=== PATIENT | female | born 1950 | race Caucasian/White ===

== ENCOUNTER 2017-05-25 14:20 | Inpatient (IN) | payer MEDICARE, BC ==
[~2017-05-25] VITALS: Ht 170.2 cm; Wt 62.3 kg
[2017-05-25] MEDS ORDERED: SODIUM CHLORIDE 0.9% 1,000 ML IVB ONE (15:05)
[2017-05-25] MEDS ORDERED: OLAN2.5T32 PO (15:32)
[2017-05-25] MEDS ORDERED: BUPR8SUB18 SL (15:32)
[2017-05-25 16:02] LABS: Basophils # (auto) 0 uL; Eosinophils # (auto) 0 uL; Mean Corpuscular Volume 92.4 fL (80.0-100.0); Monocytes # (auto) 0.1 uL; Platelet Count (auto) 188 10^3/uL (140-450)
[2017-05-25 16:04] LABS: Basophils % (auto) 0.2 % (0.0-2.0); Eosinophils % (auto) 0.1 % (0.0-7.0); Hematocrit 22.7 % (36.0-46.0); Hemoglobin 7.8 g/dL (12.2-16.2); Lymphocytes # (auto) 0.3 uL; Lymphocytes % (auto) 5.4 % (10.0-50.0); Mean Corpuscular Hemoglobin 31.8 pg (28.0-32.0); Mean Corpuscular Hgb Conc. 34.4 g/dL (32.0-36.0); Monocytes % (auto) 1.1 % (0.0-12.0); Neutrophils # (auto) 5.8 uL; Neutrophils % (auto) 93.2 % (37.0-80.0); Nucleated Red Blood Cells % 0.1 %; Red Blood Cells 2.45 10^6/uL (4.0-5.20); Red Cell Distribution Width 13.9 % (11.8-14.3); White Blood Cell 6.2 10^3/uL (4.4-10.8)
[2017-05-25 16:26] LABS: Alanine Aminotransferase 89 U/L (13-56); Albumin 2.2 g/dL (3.4-5.0); Alkaline Phosphatase 114 U/L (45-117); Anion Gap 9 (5-15); Aspartate Aminotransferase 84 U/L (15-37); BUN/Creatinine Ratio 18.3; Bilirubin, Total 0.4 mg/dL (0.2-1.0); Blood Urea Nitrogen 13 mg/dL (7-18); Calcium 6.7 mg/dL (8.5-10.1); Carbon Dioxide 21 mmol/L (21-32); Chloride 109 mmol/L (98-107); GFR African American 106 mL/min; GFR Non-African American 88 mL/min; Glucose 235 mg/dL (74-106); Magnesium 2.3 mg/dL (1.6-2.6); Potassium 3.5 mmol/L (3.5-5.1); Sodium 139 mmol/L (136-145); Total Protein 4.3 g/dL (6.4-8.2)
[2017-05-25] MEDS ORDERED: ONDANSETRON HCL 4 MG/2 ML VIAL IV PRN (17:00)
[2017-05-25] MEDS ORDERED: NITROGLYCERIN 0.4 MG SL TAB SL PRN (17:00)
[2017-05-25] MEDS ORDERED: MORPHINE SULFATE 4 MG/ML SYR/VIAL IV PRN (17:00)
[2017-05-25] MEDS ORDERED: PANTOPRAZOLE 40 MG/10 ML VIAL IV ONE (17:00)
[2017-05-25] MEDS: SODIUM CHLORIDE 0.9% 1,000 ML IV SCH (17:11)
[2017-05-25] MEDS: buPROPion HCL 75 MG TAB PO SCH (22:00)
[2017-05-25 22:30] VITALS: BP 113/58
[2017-05-26] VITALS (9 sets, daily range): BP systolic 101–122; BP diastolic 66–85
[2017-05-26] MEDS: SODIUM CHLORIDE 0.9% 1,000 ML IV SCH ×2 (06:20→19:40)
[2017-05-26 06:23] LABS: Basophils # (auto) 0 uL; Eosinophils # (auto) 0 uL; Hemoglobin 7.3 g/dL (12.2-16.2); Lymphocytes # (auto) 0.3 uL; Monocytes # (auto) 0.4 uL; Neutrophils % (auto) 91.1 % (37.0-80.0)
[2017-05-26 06:27] LABS: Basophils % (auto) 0.1 % (0.0-2.0); Hematocrit 21.1 % (36.0-46.0); Mean Corpuscular Hemoglobin 31.8 pg (28.0-32.0); Mean Corpuscular Hgb Conc. 34.8 g/dL (32.0-36.0); Mean Corpuscular Volume 91.4 fL (80.0-100.0); Monocytes % (auto) 4.8 % (0.0-12.0); Neutrophils # (auto) 7.8 uL; Nucleated Red Blood Cells % 0.1 %; Platelet Count (auto) 172 10^3/uL (140-450); Red Blood Cells 2.31 10^6/uL (4.0-5.20); Red Cell Distribution Width 13.7 % (11.8-14.3); White Blood Cell 8.6 10^3/uL (4.4-10.8)
[2017-05-26 06:51] LABS: BUN/Creatinine Ratio 13.6; Calcium 7.6 mg/dL (8.5-10.1); Potassium 4.3 mmol/L (3.5-5.1)
[2017-05-26 06:53] LABS: Urine Bacteria NONE SEEN /hpf (None Seen); Urine Blood Negative /uL (Negative); Urine Specific Gravity 1.006 (1.001-1.035); Urine WBC <1 /hpf (0 - 5)
[2017-05-26] MEDS ORDERED: PANTOPRAZOLE 40 MG/10 ML VIAL IV SCH (10:00)
[2017-05-26] MEDS ORDERED: OLANZapine 5 MG TAB PO SCH (10:00)
[2017-05-26] MEDS ORDERED: DEXTROSE (50%) 50ML SYRG IV PRN (11:15)
[2017-05-26] MEDS: buPROPion HCL 75 MG TAB PO SCH ×2 (11:31→22:03)
[2017-05-26] MEDS: InsuLIN REG 1unit/0.01ml Soln (100units/ml) SC SCH ×3 (11:38→21:08)
[2017-05-26] MEDS: ACCU-CHEK COMFORT CURVE STRIP VI SCH ×3 (11:38→21:02)
[2017-05-26] MEDS: PANTOPRAZOLE 40 MG/10 ML VIAL IV SCH (22:03)
[2017-05-27 05:00] VITALS: BP 125/84
[2017-05-27 06:35] LABS: Basophils # (auto) 0 uL; Basophils % (auto) 0.2 % (0.0-2.0); Eosinophils # (auto) 0 uL; Hematocrit 24.8 % (36.0-46.0); Hemoglobin 8.7 g/dL (12.2-16.2); Lymphocytes # (auto) 1.6 uL; Lymphocytes % (auto) 14.5 % (10.0-50.0); Mean Corpuscular Hemoglobin 31.6 pg (28.0-32.0); Mean Corpuscular Hgb Conc. 35.1 g/dL (32.0-36.0); Mean Corpuscular Volume 90.1 fL (80.0-100.0); Monocytes # (auto) 0.8 uL; Monocytes % (auto) 7.6 % (0.0-12.0); Neutrophils # (auto) 8.4 uL; Neutrophils % (auto) 77.7 % (37.0-80.0); Platelet Count (auto) 190 10^3/uL (140-450); Red Blood Cells 2.75 10^6/uL (4.0-5.20); Red Cell Distribution Width 14.5 % (11.8-14.3); White Blood Cell 10.7 10^3/uL (4.4-10.8)
[2017-05-27] MEDS: InsuLIN REG 1unit/0.01ml Soln (100units/ml) SC SCH (06:39)
[2017-05-27] MEDS: ACCU-CHEK COMFORT CURVE STRIP VI SCH (06:39)
[2017-05-27 08:00] VITALS: BP 122/83
[2017-05-27 08:31] LABS: INR 0.95 (0.9-1.15); Prothrombin Time 10.3 sec (9.37-12.3)
[2017-05-27] MEDS: SODIUM CHLORIDE 0.9% 1,000 ML IV SCH ×2 (09:00→21:33)
[2017-05-27 09:33] VITALS: BP 122/83
[2017-05-27] MEDS: PANTOPRAZOLE 40 MG/10 ML VIAL IV SCH ×2 (09:58→21:30)
[2017-05-27] MEDS: buPROPion HCL 75 MG TAB PO SCH ×2 (09:59→21:31)
[2017-05-27] MEDS ORDERED: LIDOCAINE VISCOUS 2% 15ML UD ONE (10:29)
[2017-05-27] MEDS ORDERED: NALOXONE HCL 0.4 MG/ML VIAL ONE (10:29)
[2017-05-27] MEDS ORDERED: FLUMAZENIL 0.1 MG/ML INJ 10ML MDV IV ONE (10:29)
[2017-05-27] MEDS ORDERED: diphenhdrAMINE HCL 50 MG/1 ML VL ONE (10:30)
[2017-05-27] MEDS: MIDAZOLAM HCL 5 MG/ML-1ML VIAL ONE ×2 (11:28→11:35)
[2017-05-27] MEDS: fentaNYL CITRATE 100 MCG/2 ML VL ONE ×2 (11:28→14:07)
[2017-05-27] MEDS ORDERED: EPINEPHrine HCL 1 MG/10 ML SYRG ONE (11:34)
[2017-05-27 17:02] VITALS: BP 117/77
[2017-05-27] MEDS: OLANZapine 5 MG TAB PO SCH (21:32)
[2017-05-27 22:00] VITALS: BP 111/68
[2017-05-28 05:20] VITALS: BP 117/72
[2017-05-28 06:50] LABS: Basophils # (auto) 0 uL; Eosinophils # (auto) 0 uL; Hemoglobin 8.3 g/dL (12.2-16.2); Lymphocytes # (auto) 1.3 uL; Monocytes # (auto) 0.2 uL; Neutrophils # (auto) 2.5 uL
[2017-05-28 06:52] LABS: Basophils % (auto) 0.6 % (0.0-2.0); Eosinophils % (auto) 0.5 % (0.0-7.0); Hematocrit 23.7 % (36.0-46.0); Mean Corpuscular Hemoglobin 31.7 pg (28.0-32.0); Mean Corpuscular Hgb Conc. 34.9 g/dL (32.0-36.0); Mean Corpuscular Volume 90.8 fL (80.0-100.0); Neutrophils % (auto) 62.9 % (37.0-80.0); Platelet Count (auto) 191 10^3/uL (140-450); Red Blood Cells 2.61 10^6/uL (4.0-5.20); Red Cell Distribution Width 14.1 % (11.8-14.3)
[2017-05-28 07:03] LABS: BUN/Creatinine Ratio 17.1; Calcium 8.1 mg/dL (8.5-10.1); Potassium 3.7 mmol/L (3.5-5.1)
[2017-05-28 07:29] VITALS: BP 104/70
[2017-05-28 08:00] VITALS: BP 124/78
[2017-05-28] MEDS: buPROPion HCL 75 MG TAB PO SCH ×2 (09:46→22:40)
[2017-05-28] MEDS: PANTOPRAZOLE 40 MG/10 ML VIAL IV SCH ×2 (09:46→22:40)
[2017-05-28 12:16] VITALS: BP 124/78
[2017-05-28 16:42] VITALS: BP 114/75
[2017-05-28 22:00] VITALS: BP 91/54
[2017-05-28] MEDS: OLANZapine 5 MG TAB PO SCH (22:40)
[2017-05-29 00:29] VITALS: BP 103/66
[2017-05-29 05:29] VITALS: BP 105/65
[2017-05-29 07:04] LABS: Basophils # (auto) 0 uL; Eosinophils # (auto) 0.2 uL; Hemoglobin 8.3 g/dL (12.2-16.2); Lymphocytes # (auto) 1.2 uL; Monocytes # (auto) 0.2 uL; Neutrophils # (auto) 1.4 uL; Red Cell Distribution Width 13.6 % (11.8-14.3)
[2017-05-29 07:06] LABS: Basophils % (auto) 1.2 % (0.0-2.0); Eosinophils % (auto) 5.2 % (0.0-7.0); Hematocrit 23.8 % (36.0-46.0); Lymphocytes % (auto) 41.4 % (10.0-50.0); Mean Corpuscular Hemoglobin 31.3 pg (28.0-32.0); Mean Corpuscular Hgb Conc. 34.9 g/dL (32.0-36.0); Mean Corpuscular Volume 89.9 fL (80.0-100.0); Monocytes % (auto) 5.7 % (0.0-12.0); Neutrophils % (auto) 46.5 % (37.0-80.0); Platelet Count (auto) 223 10^3/uL (140-450); Red Blood Cells 2.65 10^6/uL (4.0-5.20)
[2017-05-29 07:31] VITALS: BP 109/72
[2017-05-29 08:12] VITALS: BP 109/72
[2017-05-29] MEDS: buPROPion HCL 75 MG TAB PO SCH (09:19)
[2017-05-29] MEDS: PANTOPRAZOLE 40 MG/10 ML VIAL IV SCH (09:19)
[2017-05-29 11:06] VITALS: BP 109/72
== END 2017-05-29 12:40 | disposition home or self-care (01) | DRG 393 ==
LOC: ER 14:20 → EDBD 14:20 → TELE 14:21 → TELE-CENTR 20:30
PROVIDERS: ADMIT Internal Medicine; ATTEND Internal Medicine
PROC: 30233N1 Transfusion of Nonautologous Red Blood Cells into Peripheral Vein, Percutaneous Approach (ICD-10-PCS; 2017-05-26)
PROC: 0W3P8ZZ Control Bleeding in Gastrointestinal Tract, Via Natural or Artificial Opening Endoscopic (ICD-10-PCS; 2017-05-27)
PROC: 3E0G8GC Introduction of Other Therapeutic Substance into Upper GI, Via Natural or Artificial Opening Endoscopic (ICD-10-PCS; principal; 2017-05-27 11:25)
DX: S36.490A Other injury of duodenum, initial encounter (principal); K29.81 Duodenitis with bleeding; I95.9 Hypotension, unspecified; C25.9 Malignant neoplasm of pancreas, unspecified; K83.1 Obstruction of bile duct; K26.4 Chronic or unspecified duodenal ulcer with hemorrhage; D64.9 Anemia, unspecified; E78.5 Hyperlipidemia, unspecified; K29.61 Other gastritis with bleeding; F31.9 Bipolar disorder, unspecified; R55 Syncope and collapse; Z80.0 Family history of malignant neoplasm of digestive organs; Z80.49 Family history of malignant neoplasm of other genital organs; Z80.52 Family history of malignant neoplasm of bladder; Z80.7 Family history of other malignant neoplasms of lymphoid, hematopoietic and related tissues; Z80.8 Family history of malignant neoplasm of other organs or systems; X58.XXXA Exposure to other specified factors, initial encounter; Y93.9 Activity, unspecified; Y92.239 Unspecified place in hospital as the place of occurrence of the external cause
CPT/HCPCS: 36415; 36430; 43255; 71045; 80048; 80053; 81001; 82962; 83036; 83735; 84484; 85025; 85610; 85730; 86850; 86900; 86901; 86920; 87081; 93005; 93306; 94761; 96361; 96374; C9113; J1642; J1815; J2250

== ENCOUNTER 2017-07-01 20:33 | Emergency (ER) | payer MEDICARE, OTHER ==
[~2017-07-01] VITALS: Ht 170.2 cm; Wt 63.0 kg
[~2017-07-01 20:33] MED LIST: BUPR8SUB18 SL; OLAN2.5T32 PO
[2017-07-01 21:19] LABS: Urine Bacteria NONE SEEN /hpf (None Seen); Urine Blood Negative /uL (Negative); Urine WBC 1 /hpf (0 - 5)
[2017-07-01] MEDS ORDERED: metroNIDAZOLE 500MG/100ML 100 ML IV ONE (22:45)
[2017-07-01] MEDS ORDERED: cefTRIAXone 1GM/10ml IVPUSH 10 ML IV ONE (22:45)
[2017-07-01 22:50] LABS: Basophils # (auto) 0 uL; Basophils % (auto) 0.1 % (0.0-2.0); Eosinophils # (auto) 0 uL; Eosinophils % (auto) 0.1 % (0.0-7.0); Hematocrit 33.9 % (36.0-46.0); Hemoglobin 11.3 g/dL (12.2-16.2); Lymphocytes # (auto) 0.3 uL; Lymphocytes % (auto) 5.1 % (10.0-50.0); Mean Corpuscular Hemoglobin 30.4 pg (28.0-32.0); Mean Corpuscular Hgb Conc. 33.4 g/dL (32.0-36.0); Mean Corpuscular Volume 91.1 fL (80.0-100.0); Monocytes # (auto) 0.3 uL; Monocytes % (auto) 6.2 % (0.0-12.0); Neutrophils # (auto) 4.6 uL; Neutrophils % (auto) 88.5 % (37.0-80.0); Nucleated Red Blood Cells % 0.1 %; Platelet Count (auto) 214 10^3/uL (140-450); Red Blood Cells 3.72 10^6/uL (4.0-5.20); Red Cell Distribution Width 15.7 % (11.8-14.3); White Blood Cell 5.2 10^3/uL (4.4-10.8)
[2017-07-01] MEDS ORDERED: BENZOCAINE (DENTAL) 20 % SPRAY 60ML MT ONE (22:51)
[2017-07-01 22:56] LABS: Lactic Acid w/Reflex 3.1 mmol/L (0.4-2.0)
[2017-07-01 23:07] LABS: Alanine Aminotransferase 910 U/L (13-56); Albumin 3.5 g/dL (3.4-5.0); Alkaline Phosphatase 328 U/L (45-117); Anion Gap 10 (5-15); Aspartate Aminotransferase 1041 U/L (15-37); BUN/Creatinine Ratio 9.3; Bilirubin, Total 1.9 mg/dL (0.2-1.0); Blood Urea Nitrogen 10 mg/dL (7-18); Calcium 8.6 mg/dL (8.5-10.1); Carbon Dioxide 24 mmol/L (21-32); Chloride 99 mmol/L (98-107); GFR African American 66 mL/min; GFR Non-African American 55 mL/min; Glucose 146 mg/dL (74-106); Potassium 3.5 mmol/L (3.5-5.1); Sodium 133 mmol/L (136-145); Total Protein 6.5 g/dL (6.4-8.2)
[2017-07-01 23:45] VITALS: BP 102/71
[2017-07-02] MEDS ORDERED: SODIUM CHLORIDE 0.9% 1,000 ML IV ONE
== END 2017-07-02 01:38 | disposition left against medical advice (07) ==
LOC: ER 20:33
DX: R50.9 Fever, unspecified (principal); K63.1 Perforation of intestine (nontraumatic); Z53.29 Procedure and treatment not carried out because of patient's decision for other reasons
CPT/HCPCS: 36415; 71045; 74176; 80053; 81001; 83605; 83880; 84484; 85025; 87040; 87077; 87186; 93005; 94761; 96365; 96375; 99285; J3490